=== PATIENT | male | born 1975 | race African-American/Black ===

== ENCOUNTER 2021-03-22 23:53 | Emergency (ER) | payer MEDICARE, MEDICAID ==
[~2021-03-22] VITALS: Ht 188 cm; Wt 92.7 kg
[~2021-03-22 23:53] MED LIST: ARIP30TA PO; LURA80TA2; MIRT30TA2 PO
[2021-03-23 02:00] VITALS: BP 136/85
== END 2021-03-23 02:12 | disposition home or self-care (01) ==
LOC: EMS 23:54
DX: F20.9 Schizophrenia, unspecified (principal); I10 Essential (primary) hypertension; F17.210 Nicotine dependence, cigarettes, uncomplicated; E78.00 Pure hypercholesterolemia, unspecified; Z79.899 Other long term (current) drug therapy
CPT/HCPCS: 99285; Z7502